=== PATIENT | female | born 1985 | race Caucasian/White ===

== ENCOUNTER 2018-08-28 14:39 | Emergency (ER) | payer BC ==
--- NOTE | 2018-08-28 15:04 | EDPHY ---
H & P Stated Complaint: CANDELARIO, palpitations Time Seen by Provider: 08/28/18 15:04 - Personal History Current Tetanus/Diphtheria Vaccine: Unsure Current Tetanus Diphtheria and Acellular Pertussis (TDAP): Unsure - Medical/Surgical History Hx Asthma: No Hx Chronic Respiratory Disease: No Hx Diabetes: No Hx Cardiac Disease: No Hx Renal Disease: No Hx Cirrhosis: No Hx Alcoholism: No Hx HIV/AIDS: No Hx Splenectomy or Spleen Trauma: No Other PMH: Strep, throat, tonsilectomy, miscarriage, sinus surgery, - Social History Smoking Status: Never smoked Constitutional: Initial Vital Signs Temperature (C) 36.8 C 08/28/18 14:47 Heart Rate 97 08/28/18 14:47 Respiratory Rate 16 08/28/18 14:47 Blood Pressure 132/88 H 08/28/18 14:47 O2 Sat (%) 96 08/28/18 14:47 O2 Delivery Mode Room Air Allergies/Adverse Reactions: cefzil Allergy (Uncoded 08/28/18 14:47) Home Medications: Medication Instructions Recorded Hydrocodone/APAP 5/325 [Dunlap 1 - 2 each PO Q4-6PRN PRN #20 tab 08/28/18 5/325] Macrobid 08/28/18 08/28/18 Medical Decision Making ED Course/Re-evaluation: CHIEF COMPLAINT: Heart palpitations, headache HISTORY OF PRESENT ILLNESS: The patient is a 33 y/o female with a history of a miscarriage complaining of a headache and heart palpitations onset 1 week ago while at home in [place]. The patient then came to [place] and her symptoms continued. Yesterday and today she also felt nauseous. The headache presents with a pressure in her left eye and is similar to prior headaches when she was on control. The headache does not improve after taking Tylenol. The patient typically gets PVC's when she drinks caffeine, so she has been trying to stop drinking caffeine with her symptoms. The heart palpitations increase when she is lying on her left side. Exercising mildly alleviates her symptoms. No fever, chest pain, shortness of breath, abdominal pain, urinary or bowel complaints, numbness, paresthesias. REVIEW OF SYSTEMS: A comprehensive 10 system review of systems is otherwise negative aside from elements mentioned in the history of present illness and medical decision making. PHYSICAL EXAM: HR, BP, O2 Sat, RR. Temp noted General Appearance: Alert, well hydrated, appropriate, and non-toxic appearing. Head: Atraumatic without scalp tenderness or obvious injury Eyes: Pupils equal, round, reactive to light and accommodation, EOMI, no trauma , no injection. Ears: Clear bilaterally, no perforation, normal landmarks Nose: Atraumatic, no rhinorrhea, clear. Throat: There is no erythema or exudates, no lesions, normal tonsils, mucus membranes moist. Neck: Supple, 2+ carotid upstroke, nontender, no lymphadenopathy. Respiratory: No retractions, no distress, no wheezes, and no accessory muscle use. Lungs are clear to auscultation bilaterally. Cardiovascular: Regular rate and rhythm, no murmurs, rubs, or gallops. Bilateral carotid, radial, dorsalis pedis, and posterior tibial pulses intact. Good capillary refill all extremities. Gastrointestinal: Abdomen is soft, nontender, non-distended, no masses, no rebound, no guarding, no peritoneal signs. Musculoskeletal: Normal active ROM of all extremities, atraumatic. Neurological: Alert, appropriate, and interactive. The patient has normal DTRs and non-focal cranial nerves, motor, sensory, and cerebellar exam. Skin: No rashes, good turgor, no nodules on palpation. Past medical history: Strep, throat, miscarriage Past surgical history: Tonsillectomy, sinus surgery Family history: Denies Social history: at bedside, lives in [place], employed DIAGNOSTICS/PROCEDURES/CRITICAL CARE TIME: EKG: The 12 lead EKG was interpreted by myself as sinus rhythm with a rate of 79. See hard copy and/or "tracemaster" electronic copy for interpretation. DIFFERENTIAL DIAGNOSIS: The differential diagnosis for the patient's palpitations included but was not limited to myocardial ischemia, pulmonary embolus, chest wall pain, pleural inflammation, and pulmonary infectious causes. The differential diagnosis for the patient's headache included but was not limited to subarachnoid hemorrhage, migraine headache, tension headache and infectious causes such as meningitis, pharyngitis and sinusitis. MEDICAL DECISION MAKING: The patient is a 33 y/o female with a history of a miscarriage presenting with a headache and heart palpitations onset 1 week ago while at home in [place]. She has a normal physical exam. Labs and EKG ordered; 30mg IV Toradol and 10mg IV Reglan administered. 1513: I interpreted patient's EKG as sinus rhythm with a rate of 79 1540: Reassessed patient, her headache has mildly improved but has not completely resolved. 1615: Reassessed patient, her headache has almost completely resolved. I suspect some of her symptoms are due to being at high altitude. I have prescribed her Dunlap and advised her to take Excedrin migraine. Return precautions provided patient is comfortable with this plan. - Data Points Laboratory Results: Laboratory Results 08/28/18 13:25 08/28/18 13:25 08/28/18 08/28/18 08/28/18 15:30 13:25 13:25 WBC RBC Hgb Hct MCV MCH MCHC RDW Plt Count MPV Neut % (Auto) Lymph % (Auto) [place] % (Auto) Eos % (Auto) Baso % (Auto) Nucleat RBC Rel Count Absolute Neuts (auto) Absolute Lymphs (auto) Absolute Monos (auto) Absolute Eos (auto) Absolute Basos (auto) Absolute Nucleated RBC Immature Gran % Immature Gran # Sodium 139 mEq/L mEq/L (135-145) Potassium 3.7 mEq/L mEq/L (3.5-5.2) Chloride 107 mEq/L mEq/L (97-110) Carbon Dioxide 24 mEq/l mEq/l (22-31) Anion Gap 8 mEq/L mEq/L (6-14) BUN 12 mg/dL mg/dL (7-23) Creatinine 0.6 mg/dL mg/dL (0.6-1.0) Estimated GFR > 60 Glucose 102 mg/dL H mg/dL (70-100) Calcium 9.4 mg/dL mg/dL (8.5-10.4) POC Troponin I 0.00 ng/mL ng/mL (0.00-0.08) Beta HCG, Qual NEGATIVE 08/28/18 13:25 WBC 7.56 10^3/uL 10^3/uL (3.80-9.50) RBC 3.91 10^6/uL L 10^6/uL (4.18-5.33) Hgb 11.9 g/dL L g/dL (12.6-16.3) Hct 35.5 % L % (38.0-47.0) MCV 90.8 fL fL (81.5-99.8) MCH 30.4 pg pg (27.9-34.1) MCHC 33.5 g/dL g/dL (32.4-36.7) RDW 13.2 % % (11.5-15.2) Plt Count 262 10^3/uL 10^3/uL (150-400) MPV 10.1 fL fL (8.7-11.7) Neut % (Auto) 55.2 % % (39.3-74.2) Lymph % (Auto) 33.1 % % (15.0-45.0) [place] % (Auto) 9.1 % % (4.5-13.0) Eos % (Auto) 2.1 % % (0.6-7.6) Baso % (Auto) 0.4 % % (0.3-1.7) Nucleat RBC Rel Count 0.0 % % (0.0-0.2) Absolute Neuts (auto) 4.17 10^3/uL 10^3/uL (1.70-6.50) Absolute Lymphs (auto) 2.50 10^3/uL 10^3/uL (1.00-3.00) Absolute Monos (auto) 0.69 10^3/uL 10^3/uL (0.30-0.80) Absolute Eos (auto) 0.16 10^3/uL 10^3/uL (0.03-0.40) Absolute Basos (auto) 0.03 10^3/uL 10^3/uL (0.02-0.10) Absolute Nucleated RBC 0.00 10^3/uL 10^3/uL (0-0.01) Immature Gran % 0.1 % % (0.0-1.1) Immature Gran # 0.01 10^3/uL 10^3/uL (0.00-0.10) Sodium Potassium Chloride Carbon Dioxide Anion Gap BUN Creatinine Estimated GFR Glucose Calcium POC Troponin I Beta HCG, Qual Medications Given: Discontinued Medications Ketorolac Tromethamine (Toradol) 30 mg IVP EDNOW ONE Stop: 08/28/18 15:12 Last Admin: 08/28/18 15:21 Dose: 30 mg Metoclopramide HCl (Reglan Injection) 10 mg IVP EDNOW ONE Stop: 08/28/18 15:12 Last Admin: 08/28/18 15:21 Dose: 10 mg Point of Care Test Results: Chemistry 08/28/18 15:30 POC Troponin I 0.00 ng/mL ng/mL (0.00-0.08) Departure - Departure Disposition: Home, Routine, Self-Care Clinical Impression: Headache Qualifiers: Headache type: unspecified Headache chronicity pattern: acute headache Intractability: intractable Qualified Code(s): R51 - Headache Condition: Good Instructions: Acute Headache (ED) Additional Instructions: 1. Take Dunlap as prescribed. 2. Take Excedrin migraine. 3. Follow-up with your primary care physician within 72 hours. 4. Return to the emergency department immediately for recurrence of headache, nausea, vomiting, numbness, weakness, neck pain, fever or other concerns. Referrals: JOE RAMIREZ [Other] - As per Instructions Prescriptions: Hydrocodone/APAP 5/325 [Dunlap 5/325] 1 - 2 each PO Q4-6PRN PRN #20 tab PRN Reason: Pain, Moderate Report Scribed for: Norman Olson Report Scribed by: Connie Tony Date of Report: 08/28/18 Time of Report: 15:05
[2018-08-28] MEDS ORDERED: KETOROLAC 30 MG/1 ML SDV IVP ONE (15:11)
[2018-08-28] MEDS ORDERED: METOCLOPRAMIDE 10 MG/2 ML VIAL IVP ONE (15:11)
[2018-08-28 15:42] LABS: PLATELET COUNT 262 10^3/uL (150-400)
[2018-08-28 16:17] VITALS: BP 113/79
[2018-08-28] MEDS ORDERED: HYDROCOD/APAP 5/325 PREPACK#6 BTL TAKEHOME ONE (16:19)
--- NOTE | 2018-08-29 17:36 | CPEKG ---
Test Reason : OPEN Blood Pressure : / mmHG Vent. Rate : 079 BPM Atrial Rate : 079 BPM P-R Int : 160 ms QRS Dur : 076 ms QT Int : 390 ms P-R-T Axes : 044 056 047 degrees QTc Int : 448 ms Sinus rhythm Confirmed by Norman Olson [id number] on 08/29/2018 5:35:34 PM Referred By: Confirmed By:Norman Olson
== END 2018-08-28 16:24 | disposition home or self-care (01) ==
DX: R51 Headache (principal); R00.2 Palpitations; Z87.59 Personal history of other complications of pregnancy, childbirth and the puerperium
CPT/HCPCS: 84484-PO; 96374; J1885; J2765